=== PATIENT | male | born 1940 | race Caucasian/White ===

== ENCOUNTER 2017-11-16 23:36 | Emergency (ER) | payer MEDICARE ==
[~2017-11-16] VITALS: Ht 185.4 cm; Wt 92.0 kg
[2017-11-17 00:17] LABS: BASOPHILS # (AUTO) 0.06 x10^3/uL (0-0.1); BASOPHILS % (AUTO) 1 % (0-1); EOSINOPHILS # (AUTO) 0.16 x10^3/uL (0-0.4); EOSINOPHILS % (AUTO) 2 % (1-7); LYMPHOCYTES # (AUTO) 1.32 x10^3/uL (1-3.4); LYMPHOCYTES % (AUTO) 16 % (22-44); MD NO; MEAN CORPUSCULAR HEMOGLOBIN 32.4 pg (27.5-34.5); MEAN CORPUSCULAR HGB CONC 33.5 g/dL (33.2-36.2); MEAN CORPUSCULAR VOLUME 96.6 fL (81-97); MEAN PLATELET VOLUME 7.4 fL (7.4-10.4); MONOCYTES # (AUTO) 0.69 x10^3/uL (0.2-0.8); MONOCYTES % (AUTO) 8 % (2-9); NEUTROPHILS # (AUTO) 5.99 x10^3/uL (1.8-6.8); NEUTROPHILS % (AUTO) 73 % (42-75); PLATELET COUNT 191 x10^3/uL (130-400); RED BLOOD COUNT 3.39 x10^6/uL (4.38-5.82); RED CELL DISTRIBUTION WIDTH 13.3 % (9.4-14.8)
[2017-11-17 00:24] LABS: ALBUMIN 4.1 g/dL (3.4-5.0); ANION GAP 9 mmol/L (5-15); CHLORIDE 107 mmol/L (98-107); CREATININE 1.33 mg/dL (0.7-1.3)
[2017-11-17 00:26] LABS: CULTURE INDICATED? YES; MICROSCOPIC INDICATED
[2017-11-17] MEDS ORDERED: SODIUM CHLORIDE 0.9% 1,000 ML IV ONE (00:29)
[2017-11-17] MEDS ORDERED: OMNIPAQUE 350 MG/ML, 100ML BOTTLE ONE (00:29)
[2017-11-17] MEDS ORDERED: SODIUM CHLORIDE FLUSH 10ML SYR IVF ONE (00:30)
[2017-11-17 02:08] VITALS: BP 150/83
== END 2017-11-17 02:36 | disposition home or self-care (01) ==
LOC: ED 11-17 00:43
DX: N30.01 Acute cystitis with hematuria (principal); N32.0 Bladder-neck obstruction; N13.30 Unspecified hydronephrosis; N28.9 Disorder of kidney and ureter, unspecified; I10 Essential (primary) hypertension; Z85.51 Personal history of malignant neoplasm of bladder
CPT/HCPCS: 36415; 74178; 80048; 81001; 82040; 85025; 87086; 99285; J7030; Q9967